=== PATIENT | male | born 1995 | race Hispanic/Latino ===

== ENCOUNTER 2017-07-25 17:35 | Emergency (ER) | payer SELFPAY ==
--- NOTE | 2017-07-25 19:33 | ER ---
Nurse's Notes [facility] Name: Vidal Sexton Age: 21 yrs Sex: Male : 1995 Arrival Date: 07/25/2017 Time: 17:39 Bed 8 Private MD: Diagnosis: Noninfective gastroenteritis and colitis, unspecified Presentation: 07/25 18:15 Presenting complaint: Patient states: N/V/D and upper abdominal pain x 4 days. Denies hb fever. Tolerating liquids. Transition of care: patient was not received from another setting of care. Onset of symptoms was July 22, 2017. Initial Sepsis Screen: Does the patient meet any 2 criteria? No. Patient's initial sepsis screen is negative. Does the patient have a suspected source of infection? No. Patient's initial sepsis screen is negative. Care prior to arrival: None. 18:15 Acuity: TRISHA 3 hb 18:15 Method Of Arrival: Ambulatory hb 19:53 Note Pt came back into ED and states he did not leave and that he was outside smoking aa1 when he was called previously. Elopement reversed at this time. Historical: - Allergies: 18:15 No Known Allergies; hb - Home Meds: 18:15 None [Active]; hb - PMHx: 18:15 None; hb - PSHx: 18:15 None; hb - Immunization history:: Adult Immunizations up to date. - Social history:: Smoking status: Patient uses tobacco products, smokes one-half pack cigarettes per day. Screenin:10 Abuse screen: Denies threats or abuse. Denies injuries from another. Nutritional ak1 screening: No deficits noted. Fall Risk None identified. 20:12 Tuberculosis screening: No symptoms or risk factors identified. ak1 Assessment: 20:10 General: Appears in no apparent distress. Behavior is calm, cooperative, pt asked for a ak1 "sack lunch" . Pain: Complains of pain in headache and abd pain. Neuro: Level of Consciousness is awake, alert, obeys commands, Oriented to person, place, time, situation, Hose Inspector are equal bilaterally Moves all extremities. Gait is steady, Speech is normal, Facial symmetry appears normal. Cardiovascular: No deficits noted. Respiratory: No deficits noted. GI: Abdomen is round Bowel sounds present X 4 quads. GI: Reports lower abdominal pain, upper abdominal pain, nausea. : No signs and/or symptoms were reported regarding the genitourinary system. EENT: No signs and/or symptoms were reported regarding the EENT system. Derm: No signs and/or symptoms reported regarding the dermatologic system. Musculoskeletal: No signs and/or symptoms reported regarding the musculoskeletal system. 20:13 GI: Abd is soft and non tender X 4 quads. ak1 20:27 Reassessment: pt stated N/V/D started Tuesday. ak1 Vital Signs: 18:14 BP 158 / 102; Pulse 84; Resp 16; Temp 98.1(O); Pulse Ox 98% ; Weight 108.86 kg; Height hb 5 ft. 10 in. (177.80 cm); Pain 6/10; 20:21 BP 125 / 64; Pulse 72; Resp 16; Temp 98.1; Pulse Ox 100% on R/A; ak1 18:14 Body Mass Index 34.44 (108.86 kg, 177.80 cm) hb ED Course: 17:39 Patient arrived in ED. as 18:14 Arm band placed on left wrist. hb 18:16 Triage completed. hb 19:18 Rocio De Luna FNP-C is PHCP. kb 19:18 Mic Lomeli MD is Attending Physician. kb 19:22 Patient's name was called from ER lobby. No response. aa1 19:33 Patient's name was called from ER lobby. No response. Unable to locate patient. Will aa1 disposition as left without being seen by a provider. 20:03 Rocio De Luna FNP-C is PHCP. kb 20:04 Mic Lomeli MD is Attending Physician. kb 20:10 Lauren Cano, EDWINA is Primary Nurse. ak1 20:13 Patient has correct armband on for positive identification. Placed in gown. Bed in low ak1 position. Call light in reach. Side rails up X 1. Pulse ox on. NIBP on. 20:25 Initial lab(s) drawn, by me, sent to lab. Inserted saline lock: 20 gauge in left cc forearm, using aseptic technique. Blood collected. 21:21 No provider procedures requiring assistance completed. IV discontinued, intact, ak1 bleeding controlled, No redness/swelling at site. Pressure dressing applied. Administered Medications: 20:21 Drug: NS 0.9% 1000 ml Route: IV; Rate: 1000 ml; Site: left forearm; ak1 21:21 Follow up: IV Status: Completed infusion ak1 20:21 Drug: Zofran 4 mg Route: IVP; Site: left forearm; ak1 : Follow up: Response: No adverse reaction ak1 :22 Follow up: Response: No adverse reaction ak1 Outcome: 19:33 Patient left the ED. aa1 21:11 Discharge ordered by . natasha 21:21 Discharged to home ambulatory. ak1 21:21 Condition: good 21:21 Discharge instructions given to patient, Instructed on discharge instructions, follow up and referral plans. no drinking with medication, no driving heavy equipment, medication usage, Demonstrated understanding of instructions, follow-up care, medications, Prescriptions given X 2. 21:24 Patient left the ED. ak1 Signatures: Rocio De Luna, DEPUTY K 9-C DEPUTY K 9-CkSo Stallworth, RN RN aa1 Julianne Wilkerson Chelsea cc Krenek, Amber, RN RN ak1 Molly Torres RN RN
[2017-07-25] MEDS ORDERED: NA CHLORIDE 0.9% 1,000 ML ONE (20:15)
[2017-07-25] MEDS ORDERED: ONDANSETRON 4 MG/2 ML VIAL ONE (20:15)
[2017-07-25 20:37] LABS: Absolute Lymphocytes (CBC) 2.9 K/uL (0.7-4.9); Absolute Monocytes 0.8 K/uL (0.1-1.3); Absolute Neutrophil 4.6 K/uL (1.8-8.0); Basophils % 0.6 % (0-1.3); Eosinophils % 2.8 % (0-4.4); Hematocrit 45.7 % (39.6-49.0); Lymphocytes % 33.4 % (15.3-44.8); MCH 28.7 pg (27.0-35.0); MCV 86.5 fL (80-100); MPV 9.5 fL (7.6-11.3); Monocytes % 9.6 % (3.3-12.3); RBC Red Blood Cell Count 5.28 M/uL (4.33-5.43)
[2017-07-25 20:48] LABS: Bicarbonate 26 mEq/L (21-31); Glucose Level 89 mg/dL (65-120); Lipase 19 U/L (22-51); Potassium 3.7 mEq/L (3.6-5.0); Sodium Level 138 mEq/L (135-145)
[2017-07-25 20:54] LABS: ALT/SGPT 19 IU/L (10-60); AST/SGOT 17 IU/L (10-42); Albumin 4.1 g/dL (3.2-5.5); Alkaline Phosphatase 64 IU/L (42-121); Amylase Level 38 U/L (28-100); BUN Blood Urea Nitrogen 11 mg/dL (6-20); Bilirubin Direct < 0.1 mg/dL (0-0.2); Bilirubin Total 0.7 mg/dL (0.3-1.2); Protein, Total 7.6 g/dL (6.0-8.3)
--- NOTE | 2017-07-25 21:11 | EDPHYS ---
Physician Documentation [facility] Name: Vidal Sexton Age: 21 yrs Sex: Male : 1995 Arrival Date: 07/25/2017 Time: 17:39 Bed 8 Private MD: ED Physician Mic Lomeli HPI: 07/25 20:12 This 21 yrs old Male presents to ER via Ambulatory with complaints of kb Abdominal Pain, Headache. 20:12 The patient presents to the emergency department with nausea, vomiting, diarrhea. kb Onset: The symptoms/episode began/occurred 4 day(s) ago. Possible causes: unknown. The symptoms are aggravated by nothing. The symptoms are alleviated by nothing. Associated signs and symptoms: Pertinent positives: abdominal pain, diarrhea, nausea, vomiting. Severity of symptoms: At their worst the symptoms were mild moderate in the emergency department the symptoms are unchanged. The patient has not experienced similar symptoms in the past. The patient has not recently seen a physician. Historical: - Allergies: 18:15 No Known Allergies; hb - Home Meds: 18:15 None [Active]; hb - PMHx: 18:15 None; hb - PSHx: 18:15 None; hb - Immunization history:: Adult Immunizations up to date. - Social history:: Smoking status: Patient uses tobacco products, smokes one-half pack cigarettes per day. ROS: 20:11 Constitutional: Negative for fever, chills, and weight loss, Cardiovascular: Negative kb for chest pain, palpitations, and edema, Respiratory: Negative for shortness of breath, cough, wheezing, and pleuritic chest pain, Back: Negative for injury and pain, : Negative for injury, bleeding, discharge, and swelling, MS/Extremity: Negative for injury and deformity, Skin: Negative for injury, rash, and discoloration, Neuro: Negative for headache, weakness, numbness, tingling, and seizure. 20:11 Abdomen/GI: Positive for abdominal pain, nausea, vomiting, and diarrhea, Negative for constipation, abdominal cramps, abdominal distension, anorexia. Exam: 20:11 Constitutional: This is a well developed, well nourished patient who is awake, alert, kb and in no acute distress. Head/Face: Normocephalic, atraumatic. ENT: Nares patent. No nasal discharge, no septal abnormalities noted. Tympanic membranes are normal and external auditory canals are clear. Oropharynx with no redness, swelling, or masses, exudates, or evidence of obstruction, uvula midline. Mucous membranes moist. Neck: Trachea midline, no thyromegaly or masses palpated, and no cervical lymphadenopathy. Supple, full range of motion without nuchal rigidity, or vertebral point tenderness. No Meningismus. Chest/axilla: Normal chest wall appearance and motion. Nontender with no deformity. No lesions are appreciated. Cardiovascular: Regular rate and rhythm with a normal S1 and S2. No gallops, murmurs, or rubs. Normal PMI, no JVD. No pulse deficits. Respiratory: Lungs have equal breath sounds bilaterally, clear to auscultation and percussion. No rales, rhonchi or wheezes noted. No increased work of breathing, no retractions or nasal flaring. Abdomen/GI: Soft, non-tender, with normal bowel sounds. No distension or tympany. No guarding or rebound. No evidence of tenderness throughout. Skin: Warm, dry with normal turgor. Normal color with no rashes, no lesions, and no evidence of cellulitis. MS/ Extremity: Pulses equal, no cyanosis. Neurovascular intact. Full, normal range of motion. Neuro: Awake and alert, GCS 15, oriented to person, place, time, and situation. Cranial nerves II-XII grossly intact. Motor strength 5/5 in all extremities. Sensory grossly intact. Cerebellar exam normal. Normal gait. Vital Signs: 18:14 BP 158 / 102; Pulse 84; Resp 16; Temp 98.1(O); Pulse Ox 98% ; Weight 108.86 kg; Height hb 5 ft. 10 in. (177.80 cm); Pain 6/10; 20:21 BP 125 / 64; Pulse 72; Resp 16; Temp 98.1; Pulse Ox 100% on R/A; ak1 18:14 Body Mass Index 34.44 (108.86 kg, 177.80 cm) hb MDM: 19:20 Patient medically screened. kb 20:06 Patient medically screened. kb 20:11 Data reviewed: vital signs, nurses notes. Data interpreted: Pulse oximetry: on room air kb is 98 %. Interpretation: normal. 21:10 Counseling: I had a detailed discussion with the patient and/or guardian regarding: the kb historical points, exam findings, and any diagnostic results supporting the discharge/admit diagnosis, lab results, the need for outpatient follow up, a family practitioner, to return to the emergency department if symptoms worsen or persist or if there are any questions or concerns that arise at home. 07/25 20:06 Order name: Amylase, Serum; Complete Time: 20:58 kb 07/25 20:06 Order name: Basic Metabolic Panel; Complete Time: 20:58 kb 07/25 20:06 Order name: CBC with Diff; Complete Time: 20:50 kb 07/25 20:06 Order name: Hepatic Function; Complete Time: 20:58 kb 07/25 20:06 Order name: Lipase; Complete Time: 20:58 kb 07/25 20:06 Order name: IV Saline Lock; Complete Time: 20:21 kb 07/25 20:06 Order name: Labs collected and sent; Complete Time: 20:27 kb Administered Medications: 20:21 Drug: NS 0.9% 1000 ml Route: IV; Rate: 1000 ml; Site: left forearm; ak1 21:21 Follow up: IV Status: Completed infusion ak1 20:21 Drug: Zofran 4 mg Route: IVP; Site: left forearm; ak1 20:27 Follow up: Response: No adverse reaction ak1 21:22 Follow up: Response: No adverse reaction ak1 Disposition: 23:48 Co-signature as Attending Physician, Mic Lomeli MD. pkl Disposition: 07/25/17 21:11 Discharged to Home. Impression: Noninfective gastroenteritis and colitis, unspecified. - Condition is Stable. - Discharge Instructions: Food Choices to Help Relieve Diarrhea, Adult, Viral Gastroenteritis. - Prescriptions for Bentyl 20 mg Oral Tablet - take 1 tablet by ORAL route every 6 hours As needed; 20 tablet. Zofran 4 mg Oral Tablet - take 1 tablet by ORAL route every 6 hours As needed; 20 tablet. - Medication Reconciliation Form, Thank You Letter, Antibiotic Education, Prescription Opioid Use, Work release form form. - Follow up: Emergency Department; When: As needed; Reason: Worsening of condition. Follow up: Private Physician; When: 2 - 3 days; Reason: Recheck today's complaints, Continuance of care, Re-evaluation by your physician. Signatures: Dispatcher [employer] Rocio Gore, SUPERVISOR COOLER SERVICE-C SUPERVISOR COOLER SERVICE-So Murphy, RN RN aa1 Mic Lomeli MD MD pkl Krenek, Amber RN RN ak1 Molly Torres RN RN hb Corrections: (The following items were deleted from the chart) 21:22 20:06 Urine Dipstick-Ancillary ordered. natasha ak1
== END 2017-07-25 21:24 | disposition home or self-care (01) ==
LOC: ER 17:35
DX: K52.9 Noninfective gastroenteritis and colitis, unspecified (principal); F17.210 Nicotine dependence, cigarettes, uncomplicated
CPT/HCPCS: 36415; 80048; 80076; 82150; 83690; 85025; 96361; 96374; 99284; J2405; J7030

== ENCOUNTER 2017-09-16 21:48 | Emergency (ER) | payer SELFPAY ==
--- NOTE | 2017-09-16 22:55 | EDPHYS ---
Physician Documentation [facility] Name: Vidal Sexton Age: 22 yrs Sex: Male : 1995 Arrival Date: 09/16/2017 Time: 21:48 Bed 16 Private MD: Kevin Rivero T ED Physician Robert Jesus HPI: 09/16 22:48 This 22 yrs old Male presents to ER via Ambulatory with complaints of cp Abdominal Pain. 22:51 The patient presents to the emergency department with vomiting, 2 episodes yesterday, cp none today, diarrhea, that is intermittent. Onset: The symptoms/episode began/occurred yesterday. Possible causes: unknown. Patient reports he missed work today and needs note to return tomorrow. Patient reports he was able to eat fried rice that bought this evening without vomiting. Historical: - Allergies: 21:57 No Known Allergies; tl2 - Home Meds: 21:57 None [Active]; tl2 - PMHx: 21:57 None; tl2 - PSHx: 21:57 None; tl2 - Immunization history:: Adult Immunizations up to date. - Social history:: Smoking status: Patient uses tobacco products, smokes one-half pack cigarettes per day. - Ebola Screening: : No symptoms or risks identified at this time. ROS: 22:50 Constitutional: Negative for body aches, chills, fever, poor PO intake. cp 22:50 Eyes: Negative for injury, pain, redness, and discharge. cp 22:50 ENT: Negative for drainage from ear(s), ear pain, sore throat, difficulty swallowing, difficulty handling secretions. 22:50 Cardiovascular: Negative for chest pain. 22:50 Respiratory: Negative for cough, shortness of breath, wheezing. 22:50 Abdomen/GI: Negative for abdominal pain, diarrhea, constipation, anorexia, active vomiting. 22:50 Back: Negative for radiated pain. 22:50 : Negative for urinary symptoms, penile pain, testicular pain 22:50 Skin: Negative for cellulitis, rash. 22:50 Neuro: Negative for altered mental status, headache, weakness. 22:50 All other systems are negative. Exam: 22:52 Constitutional: The patient appears in no acute distress, alert, awake, non-toxic, well cp developed, well nourished. 22:52 Head/Face: Normocephalic, atraumatic. cp 22:52 Eyes: Periorbital structures: appear normal, Conjunctiva: normal, no exudate, no injection, Sclera: no appreciated abnormality, Lids and lashes: appear normal, bilaterally. 22:52 ENT: External ear(s): are unremarkable, Ear canal(s): are normal, clear, Nose: is normal, Mouth: Lips: moist, Oral mucosa: pink and intact, moist, Posterior pharynx: is normal, airway is patent, no erythema, no exudate. 22:52 Neck: ROM/movement: is normal, is supple, without pain, no range of motions limitations, no nuchal rigidity. 22:52 Chest/axilla: Inspection: normal, Palpation: is normal, no crepitus, no tenderness. 22:52 Cardiovascular: Rate: normal, Rhythm: regular. 22:52 Respiratory: the patient does not display signs of respiratory distress, Respirations: normal, no use of accessory muscles, no retractions, no splinting, no tachypnea, labored breathing, is not present, Breath sounds: are clear throughout, no decreased breath sounds, no stridor, no wheezing. 22:52 Abdomen/GI: Inspection: abdomen appears normal, Bowel sounds: active, all quadrants, Palpation: abdomen is soft and non-tender, in all quadrants, rebound tenderness, is not appreciated, voluntary guarding, is not appreciated, involuntary guarding, is not appreciated. 22:52 Back: pain, is absent, ROM is normal. 22:52 Skin: cellulitis, is not appreciated, no rash present. Vital Signs: 21:57 BP 135 / 77; Pulse 95; Resp 18; Temp 98.4(O); Pulse Ox 98% on R/A; Weight 111.13 kg; tl2 Height 5 ft. 11 in. (180.34 cm); Pain 2/10; 21:57 Body Mass Index 34.17 (111.13 kg, 180.34 cm) tl2 MDM: 21:51 Patient medically screened. cp 22:50 Differential diagnosis: gastritis, cholecystitis, pancreatitis, appendicitis, cp diverticulitis, viral gastroenteritis, gastroenteritis. 22:54 Data reviewed: vital signs, nurses notes, and as a result, I will discharge patient. cp 22:54 Counseling: I had a detailed discussion with the patient and/or guardian regarding: the cp historical points, exam findings, and any diagnostic results supporting the discharge/admit diagnosis, to return to the emergency department if symptoms worsen or persist or if there are any questions or concerns that arise at home. ED course: VSS. Note given to return to work. Will discharge to home for continued monitoring. Administered Medications: No medications were administered Disposition: 09/17 00:01 Co-signature as Attending Physician, Robert Jesus MD. Disposition: 09/16/17 22:54 Discharged to Home. Impression: Encounter for screening, unspecified. - Condition is Stable. - Work release form, Medication Reconciliation Form, Thank You Letter, Antibiotic Education, Prescription Opioid Use form. - Follow up: Kevin Rivero MD; When: 1 - 2 days; Reason: if symptoms continue. - Problem is new. - Symptoms have improved. Signatures: Vanessa Dunn RN RN mw Delmar Ahn PA PA cp Knox, Taylor, RN RN tl2 Robert Jesus MD MD Corrections: (The following items were deleted from the chart) 09/16 23:29 22:54 09/16/2017 22:54 Discharged to Home. Impression: Encounter for screening, mw unspecified. Condition is Stable. Forms are Medication Reconciliation Form, Thank You Letter, Antibiotic Education, Prescription Opioid Use. Follow up: Kevin Rivero; When: 1 - 2 days; Reason: if symptoms continue. Problem is new. Symptoms have improved. cp
--- NOTE | 2017-09-16 22:55 | ER ---
Nurse's Notes [facility] Name: Vidal Sexton Age: 22 yrs Sex: Male : 1995 Arrival Date: 09/16/2017 Time: 21:48 Bed 16 Private MD: Kevin Rivero T Diagnosis: Encounter for screening, unspecified Presentation: 09/16 21:55 Presenting complaint: Patient states: I called into work because I was having stomach tl2 pain and I vomited once and diarrhea. I wasn't going to come in but my boss said I needed a work release note. Transition of care: patient was not received from another setting of care. Onset of symptoms was September 15, 2017. Risk Assessment: Do you want to hurt yourself or someone else? Patient reports no desire to harm self or others. Initial Sepsis Screen: Does the patient meet any 2 criteria? No. Patient's initial sepsis screen is negative. Does the patient have a suspected source of infection? No. Patient's initial sepsis screen is negative. Care prior to arrival: None. 21:55 Method Of Arrival: Ambulatory tl2 21:55 Acuity: TRISHA 3 tl2 Triage Assessment: 21:57 General: Appears in no apparent distress. comfortable, Behavior is calm, cooperative, tl2 appropriate for age. Pain: Complains of pain in abdomen. Cardiovascular: Denies chest pain. Respiratory: Airway is patent Respiratory effort is even, unlabored, Respiratory pattern is regular, symmetrical. GI: Abdomen is non-distended, Bowel sounds present X 4 quads. Reports diarrhea, nausea, vomiting. : No signs and/or symptoms were reported regarding the genitourinary system. Derm: Skin is pink, warm \T\ dry. Historical: - Allergies: 21:57 No Known Allergies; tl2 - Home Meds: 21:57 None [Active]; tl2 - PMHx: 21:57 None; tl2 - PSHx: 21:57 None; tl2 - Immunization history:: Adult Immunizations up to date. - Social history:: Smoking status: Patient uses tobacco products, smokes one-half pack cigarettes per day. - Ebola Screening: : No symptoms or risks identified at this time. Screenin:58 Abuse screen: Denies threats or abuse. Nutritional screening: No deficits noted. tl2 Tuberculosis screening: No symptoms or risk factors identified. Fall Risk None identified. Assessment: 21:59 General: see triage assessment. tl2 22:47 Reassessment: Patient appears in no apparent distress at this time. Patient and/or tl2 family updated on plan of care and expected duration. Pain level reassessed. Patient is alert, oriented x 3, equal unlabored respirations, skin warm/dry/pink. Awaiting further orders. Vital Signs: 21:57 BP 135 / 77; Pulse 95; Resp 18; Temp 98.4(O); Pulse Ox 98% on R/A; Weight 111.13 kg; tl2 Height 5 ft. 11 in. (180.34 cm); Pain 2/10; 21:57 Body Mass Index 34.17 (111.13 kg, 180.34 cm) tl2 ED Course: 21:48 Patient arrived in ED. ds1 21:48 None, None is Private Physician. ds1 21:49 Kevin Rivero MD is Private Physician. ds1 21:51 [facility] cp 21:51 Robert Jesus MD is Attending Physician. cp 21:55 Janay Bustillo, EDWINA is Primary Nurse. tl2 21:57 Triage completed. tl2 21:57 Arm band placed on right wrist. tl2 21:59 Patient has correct armband on for positive identification. Bed in low position. Call tl2 light in reach. Side rails up X 1. 22:52 Kevin Rivero MD is Referral Physician. cp Administered Medications: No medications were administered Outcome: 22:54 Discharge ordered by . cp 23:29 Patient left the ED. Signatures: Vanessa Dunn RN RN Sandy Lynch ds1 Delmar Ahn PA PA cp Janay Bustillo RN RN tl2
== END 2017-09-16 23:29 | disposition home or self-care (01) ==
LOC: ER 21:48
DX: Z13.9 Encounter for screening, unspecified (principal); F17.210 Nicotine dependence, cigarettes, uncomplicated
CPT/HCPCS: 99281

== ENCOUNTER 2017-10-24 22:11 | Emergency (ER) | payer SELFPAY ==
[2017-10-24 23:04] LABS: Urine Blood NEGATIVE (NEG); Urine Glucose NEGATIVE (NEG); Urine Protein NEGATIVE (NEG); Urine Specific Gravity 1.015 (1.005-1.030)
--- NOTE | 2017-10-24 23:06 | EDPHYS ---
Physician Documentation [facility] Name: Vidal Sexton Age: 22 yrs Sex: Male : 1995 Arrival Date: 10/24/2017 Time: 22:11 Bed 28 Private MD: Kevin Rivero T ED Physician James Bourne HPI: 10/24 23:00 This 22 yrs old Male presents to ER via Ambulatory with complaints of jr8 Dizziness. 23:00 The patient presents with dizziness. Onset: The symptoms/episode began/occurred jr8 acutely, yesterday. Context: occurred at home. Associated signs and symptoms: The patient has no apparent associated signs or symptoms. Severity of symptoms: At their worst the symptoms were mild in the emergency department the symptoms have resolved. Patient's baseline: Neuro: alert and fully oriented, Motor: no deficits, Ambulation: walks without assistance, Speech: normal. The patient has not experienced similar symptoms in the past. The patient has not recently seen a physician. Patient stated that he has been working a lot lately. Stated that he felt fatigued. Took a day off of work. Had dizziness today but hydrated and feels much better. Called boss and wanted to make sure he got a work note. Historical: - Allergies: 22:34 No Known Allergies; bb - Home Meds: 22:34 None [Active]; bb - PMHx: 22:34 None; bb - PSHx: 22:34 None; bb - Immunization history:: Adult Immunizations up to date. - Social history:: Smoking status: Patient/guardian denies using tobacco, Patient uses alcohol, weekly. Patient/guardian denies using street drugs. - Ebola Screening: : No symptoms or risks identified at this time. ROS: 23:00 Eyes: Negative for injury, pain, redness, and discharge, ENT: Negative for injury, jr8 pain, and discharge, Neck: Negative for injury, pain, and swelling, Cardiovascular: Negative for chest pain, palpitations, and edema, Respiratory: Negative for shortness of breath, cough, wheezing, and pleuritic chest pain, Abdomen/GI: Negative for abdominal pain, nausea, vomiting, diarrhea, and constipation, Back: Negative for injury and pain, MS/Extremity: Negative for injury and deformity, Skin: Negative for injury, rash, and discoloration. 23:00 Constitutional: Positive for fatigue. 23:00 Neuro: Positive for dizziness, Negative for altered mental status, gait disturbance, headache, hearing loss, loss of consciousness, numbness, seizure activity, speech changes, syncope, near syncope, tingling, tinnitus, tremor, visual changes, weakness. Exam: 23:00 Eyes: Pupils equal round and reactive to light, extra-ocular motions intact. Lids and jr8 lashes normal. Conjunctiva and sclera are non-icteric and not injected. Cornea within normal limits. Periorbital areas with no swelling, redness, or edema. ENT: Nares patent. No nasal discharge, no septal abnormalities noted. Tympanic membranes are normal and external auditory canals are clear. Oropharynx with no redness, swelling, or masses, exudates, or evidence of obstruction, uvula midline. Mucous membranes moist. Neck: Trachea midline, no thyromegaly or masses palpated, and no cervical lymphadenopathy. Supple, full range of motion without nuchal rigidity, or vertebral point tenderness. No Meningismus. Cardiovascular: Regular rate and rhythm with a normal S1 and S2. No gallops, murmurs, or rubs. Normal PMI, no JVD. No pulse deficits. Respiratory: Lungs have equal breath sounds bilaterally, clear to auscultation and percussion. No rales, rhonchi or wheezes noted. No increased work of breathing, no retractions or nasal flaring. Abdomen/GI: Soft, non-tender, with normal bowel sounds. No distension or tympany. No guarding or rebound. No evidence of tenderness throughout. Back: No spinal tenderness. No costovertebral tenderness. Full range of motion. Skin: Warm, dry with normal turgor. Normal color with no rashes, no lesions, and no evidence of cellulitis. MS/ Extremity: Pulses equal, no cyanosis. Neurovascular intact. Full, normal range of motion. Neuro: Awake and alert, GCS 15, oriented to person, place, time, and situation. Cranial nerves II-XII grossly intact. Motor strength 5/5 in all extremities. Sensory grossly intact. Cerebellar exam normal. Normal gait. Vital Signs: 22:34 BP 132 / 67; Pulse 78; Resp 16 S; Temp 97.9(O); Pulse Ox 100% on R/A; Weight 117.93 kg bb (R); Height 5 ft. 11 in. (180.34 cm) (R); Pain 0/10; 22:34 Body Mass Index 36.26 (117.93 kg, 180.34 cm) alexander MDM: 22:32 Patient medically screened. jr8 23:00 Data reviewed: vital signs, nurses notes, and as a result, I will discharge patient. jr8 Data interpreted: Pulse oximetry: on room air is 100 %. Interpretation: normal. Counseling: I had a detailed discussion with the patient and/or guardian regarding: the historical points, exam findings, and any diagnostic results supporting the discharge/admit diagnosis, the need for outpatient follow up, a family practitioner, to return to the emergency department if symptoms worsen or persist or if there are any questions or concerns that arise at home. 10/24 22:46 Order name: Urine Dipstick--Ancillary (enter results); Complete Time: 23:06 rg2 Administered Medications: No medications were administered Disposition: 10/25 20:28 Co-signature as Attending Physician, James Bourne MD I agree with the assessment and wa plan of care. Disposition: 10/24/17 23:05 Discharged to Home. Impression: Dizziness . - Condition is Stable. - Discharge Instructions: Dehydration, Adult, Dizziness. - Work release form, Medication Reconciliation Form, Thank You Letter, Antibiotic Education, Prescription Opioid Use form. - Follow up: Kevin Rivero MD; When: As needed; Reason: Recheck today's complaints, Continuance of care, Re-evaluation by your physician. - Problem is new. - Symptoms are resolved. Signatures: Dispatcher [employer] EDShawanda Tubbs RN RN Hiram Nettles PA PA jr8 James Bourne MD MD wa Gardose, Michele, RN RN mg2 Corrections: (The following items were deleted from the chart) 10/24 23:22 23:05 10/24/2017 23:05 Discharged to Home. Impression: Dizziness . Condition is Stable. mg2 Forms are Medication Reconciliation Form, Thank You Letter, Antibiotic Education, Prescription Opioid Use. Follow up: Kevin Rivero; When: As needed; Reason: Recheck today's complaints, Continuance of care, Re-evaluation by your physician. Problem is new. Symptoms are resolved. jr8
--- NOTE | 2017-10-24 23:06 | ER ---
Nurse's Notes [facility] Name: Vidal Sexton Age: 22 yrs Sex: Male : 1995 Arrival Date: 10/24/2017 Time: 22:11 Bed 28 Private MD: Kevin Rivero T Diagnosis: Dizziness Presentation: 10/24 22:33 Presenting complaint: Patient states: he has been feeling sick since Tuesday with bb cough and congestion started feeling dizzy today states he needs a work excuse because he did not go to work today. Transition of care: patient was not received from another setting of care. Onset of symptoms was October 22, 2017. Risk Assessment: Do you want to hurt yourself or someone else? Patient reports no desire to harm self or others. Initial Sepsis Screen: Does the patient meet any 2 criteria? No. Patient's initial sepsis screen is negative. Does the patient have a suspected source of infection? No. Patient's initial sepsis screen is negative. Care prior to arrival: None. 22:33 Method Of Arrival: Ambulatory bb 22:33 Acuity: TRISHA 5 bb Historical: - Allergies: 22:34 No Known Allergies; bb - Home Meds: 22:34 None [Active]; bb - PMHx: 22:34 None; bb - PSHx: 22:34 None; bb - Immunization history:: Adult Immunizations up to date. - Social history:: Smoking status: Patient/guardian denies using tobacco, Patient uses alcohol, weekly. Patient/guardian denies using street drugs. - Ebola Screening: : No symptoms or risks identified at this time. Screenin:33 Abuse screen: Denies threats or abuse. Denies injuries from another. Nutritional mg2 screening: No deficits noted. Tuberculosis screening: No symptoms or risk factors identified. Fall Risk None identified. Assessment: 22:33 General: Appears in no apparent distress. comfortable, Behavior is calm, cooperative. mg2 Pain: Complains of pain in abdomen Pain does not radiate. Pain currently is 3 out of 10 on a pain scale. Quality of pain is described as aching, Pain began gradually. Neuro: Level of Consciousness is awake, alert, obeys commands, Oriented to person, place, time, situation. Cardiovascular: Capillary refill < 3 seconds Patient's skin is warm and dry. Respiratory: Airway is patent Respiratory effort is even, unlabored, Respiratory pattern is regular, symmetrical, Breath sounds are clear. GI: Reports nausea. : No signs and/or symptoms were reported regarding the genitourinary system. EENT: No signs and/or symptoms were reported regarding the EENT system. Derm: Skin is intact, Skin is pink, warm \T\ dry. normal. Musculoskeletal: Circulation, motion, and sensation intact. Vital Signs: 22:34 BP 132 / 67; Pulse 78; Resp 16 S; Temp 97.9(O); Pulse Ox 100% on R/A; Weight 117.93 kg bb (R); Height 5 ft. 11 in. (180.34 cm) (R); Pain 0/10; 22:34 Body Mass Index 36.26 (117.93 kg, 180.34 cm) bb ED Course: 22:11 Patient arrived in ED. ds1 22:12 Kevin Rivero MD is Private Physician. ds1 22:29 Luis Miguel Silveira RN is Primary Nurse. mg2 22:32 [facility] jr8 22:32 James Bourne MD is Attending Physician. jr8 22:34 Triage completed. bb 22:34 Arm band placed on Patient placed in an exam room, on a stretcher, on pulse oximetry. bb 22:59 Patient has correct armband on for positive identification. Side rails up X 1. Door mg2 closed. Warm blanket given. 23:05 Kevin Rivero MD is Referral Physician. jr8 23:22 No provider procedures requiring assistance completed. Patient did not have IV access mg2 during this emergency room visit. Administered Medications: No medications were administered Outcome: 23:05 Discharge ordered by . jr8 23:22 Discharged to home ambulatory. mg2 23:22 Condition: stable 23:22 Discharge instructions given to patient, Instructed on discharge instructions, follow up and referral plans. Demonstrated understanding of instructions, follow-up care. 23:22 Patient left the ED. mg2 Signatures: Sandy Lynch ds1 Shawanda Pugh RN RN bb Hiram Doss PA PA jr8 Luis Miguel Silveira RN RN mg2
== END 2017-10-24 23:22 | disposition home or self-care (01) ==
LOC: ER 22:11
DX: R42 Dizziness and giddiness (principal)
CPT/HCPCS: 81003; 99283

== ENCOUNTER 2017-11-07 21:45 | Emergency (ER) | payer SELFPAY ==
--- NOTE | 2017-11-07 22:30 | EDPHYS ---
Physician Documentation [facility] Name: Vidal Sexton Age: 22 yrs Sex: Male : 1995 Arrival Date: 11/07/2017 Time: 21:48 Bed 28 Private MD: ED Physician Robert Jesus HPI: 11/07 22:07 This 22 yrs old Male presents to ER via Ambulatory with complaints of gs Headache, Work Note. 22:07 The patient complains of pain to the forehead. The patient describes the headache as gs throbbing. Onset: The symptoms/episode began/occurred gradually, yesterday. Associated signs and symptoms: Pertinent negatives: altered mental status, fever, neck stiffness, Photophobia rash, vision loss, vomiting. Severity of symptoms: At its worst the pain was moderate, in the emergency department the pain has resolved. Headache History: Denies prior headaches. The symptoms are alleviated by over the counter pain medication, OTC NSAIDS, the symptoms are aggravated by nothing. The patient has experienced similar episodes in the past, a few times. Historical: - Allergies: 21:55 No Known Allergies; aj - Home Meds: 21:55 None [Active]; aj - PMHx: 21:55 None; aj - PSHx: 21:55 None; aj - Immunization history:: Adult Immunizations up to date. - Social history:: Smoking status: Patient uses tobacco products, smokes one-half pack cigarettes per day. - Ebola Screening: : Patient negative for fever greater than or equal to 101.5 degrees Fahrenheit, and additional compatible Ebola Virus Disease symptoms Patient denies exposure to infectious person Patient denies travel to an Ebola-affected area in the 21 days before illness onset No symptoms or risks identified at this time. ROS: 22:07 All other systems are negative. gs Exam: 22:07 Head/Face: Normocephalic, atraumatic. Eyes: Pupils equal round and reactive to light, gs extra-ocular motions intact. Lids and lashes normal. Conjunctiva and sclera are non-icteric and not injected. Cornea within normal limits. Periorbital areas with no swelling, redness, or edema. ENT: Nares patent. No nasal discharge, no septal abnormalities noted. Tympanic membranes are normal and external auditory canals are clear. Oropharynx with no redness, swelling, or masses, exudates, or evidence of obstruction, uvula midline. Mucous membranes moist. Neck: Trachea midline, no thyromegaly or masses palpated, and no cervical lymphadenopathy. Supple, full range of motion without nuchal rigidity, or vertebral point tenderness. No Meningismus. Chest/axilla: Normal chest wall appearance and motion. Nontender with no deformity. No lesions are appreciated. Respiratory: Lungs have equal breath sounds bilaterally, clear to auscultation and percussion. No rales, rhonchi or wheezes noted. No increased work of breathing, no retractions or nasal flaring. Abdomen/GI: Soft, non-tender, with normal bowel sounds. No distension or tympany. No guarding or rebound. No evidence of tenderness throughout. Back: No spinal tenderness. No costovertebral tenderness. Full range of motion. Skin: Warm, dry with normal turgor. Normal color with no rashes, no lesions, and no evidence of cellulitis. MS/ Extremity: Pulses equal, no cyanosis. Neurovascular intact. Full, normal range of motion. 22:07 Constitutional: The patient appears alert, awake. 22:07 Cardiovascular: Rate: tachycardic, Rhythm: regular, Pulses: no pulse deficits are appreciated. 22:07 Neuro: Orientation: is normal, to person, place, time \T\ situation. Mentation: is normal, Cranial nerves: CN II- XII are normal as tested, Cerebellar function: normal finger to nose testing, Motor: is normal, strength is normal, Sensation: no obvious gross deficits, no acute changes, Gait: is steady. Vital Signs: 21:55 BP 137 / 81; Pulse 125; Resp 15; Temp 97.7; Pulse Ox 97% on R/A; Weight 108.86 kg; aj Height 5 ft. 11 in. (180.34 cm); 22:20 BP 134 / 79; Pulse 93; Resp 17; Pulse Ox 99% on R/A; mg2 21:55 Body Mass Index 33.47 (108.86 kg, 180.34 cm) aj MDM: 22:06 Patient medically screened. 22:07 Differential diagnosis: migraine, tension headache, vasomotor headache. Data reviewed: vital signs, nurses notes. Response to treatment: the patient's symptoms have resolved after treatment. Administered Medications: No medications were administered Disposition: 11/07/17 22:29 Discharged to Home. Impression: Headache, Heat exhaustion, unspecified. - Condition is Stable. - Discharge Instructions: General Headache Without Cause, Heat Exhaustion Information. - Work release form, Medication Reconciliation Form, Thank You Letter, Antibiotic Education, Prescription Opioid Use form. - Follow up: Private Physician; When: 2 - 3 days; Reason: Re-evaluation by your physician. Signatures: Chichi Anderson RN RN aj Robert Jesus MD MD gs Luis Miguel Silveira RN RN mg2 Corrections: (The following items were deleted from the chart) 22:35 22:29 11/07/2017 22:29 Discharged to Home. Impression: Headache; Heat exhaustion, mg2 unspecified. Condition is Stable. Forms are Medication Reconciliation Form, Thank You Letter, Antibiotic Education, Prescription Opioid Use. Follow up: Private Physician; When: 2 - 3 days; Reason: Re-evaluation by your physician. gs
--- NOTE | 2017-11-07 22:30 | ER ---
Nurse's Notes [facility] Name: Vidal Sexton Age: 22 yrs Sex: Male : 1995 Arrival Date: 11/07/2017 Time: 21:48 Bed 28 Private MD: Diagnosis: Headache;Heat exhaustion, unspecified Presentation: 11/07 21:54 Presenting complaint: Patient states: "I had a headache today so I called in to work aj and I need a work note now." Patient presents drinking Iced Tea and eating Chips. Transition of care: patient was not received from another setting of care. Onset of symptoms was November 07, 2017. Risk Assessment: Do you want to hurt yourself or someone else? Patient reports no desire to harm self or others. Initial Sepsis Screen: Does the patient meet any 2 criteria? No. Patient's initial sepsis screen is negative. Does the patient have a suspected source of infection? No. Patient's initial sepsis screen is negative. Care prior to arrival: None. 21:54 Method Of Arrival: Ambulatory aj 21:54 Acuity: TRISHA 4 aj Triage Assessment: 21:55 Headache History: The patient has had previous headaches. General: Appears in no aj apparent distress. comfortable, Behavior is calm, cooperative, appropriate for age. Pain: Complains of pain in face and scalp. Neuro: Level of Consciousness is awake, alert, obeys commands, Oriented to person, place, time, situation, Appropriate for age Reports headache. Respiratory: Airway is patent Respiratory effort is even, unlabored, Respiratory pattern is regular, symmetrical. Derm: Skin is intact, is healthy with good turgor, Skin is pink, warm \\T\\ dry. normal. 22:21 Pain:. mg2 22:35 Pain: Also complains of no other associated symptoms. mg2 Historical: - Allergies: 21:55 No Known Allergies; aj - Home Meds: 21:55 None [Active]; aj - PMHx: 21:55 None; aj - PSHx: 21:55 None; aj - Immunization history:: Adult Immunizations up to date. - Social history:: Smoking status: Patient uses tobacco products, smokes one-half pack cigarettes per day. - Ebola Screening: : Patient negative for fever greater than or equal to 101.5 degrees Fahrenheit, and additional compatible Ebola Virus Disease symptoms Patient denies exposure to infectious person Patient denies travel to an Ebola-affected area in the 21 days before illness onset No symptoms or risks identified at this time. Screenin:05 Abuse screen: Denies threats or abuse. Denies injuries from another. Nutritional mg2 screening: No deficits noted. Tuberculosis screening: No symptoms or risk factors identified. Fall Risk None identified. Assessment: 22:09 General: Appears in no apparent distress. comfortable, Behavior is calm, cooperative. mg2 Pain: Complains of pain in head Pain does not radiate. Pain currently is 5 out of 10 on a pain scale. Quality of pain is described as aching, Pain began gradually, Is intermittent, Alleviated by rest. Neuro: Level of Consciousness is awake, alert, obeys commands, Oriented to person, place, time, situation. Cardiovascular: Capillary refill < 3 seconds Patient's skin is warm and dry. Respiratory: Airway is patent. GI: No signs and/or symptoms were reported involving the gastrointestinal system. : No signs and/or symptoms were reported regarding the genitourinary system. EENT: No signs and/or symptoms were reported regarding the EENT system. Derm: Skin is intact, Skin is pink, warm \\T\\ dry. normal. Musculoskeletal: Circulation, motion, and sensation intact. Vital Signs: 21:55 BP 137 / 81; Pulse 125; Resp 15; Temp 97.7; Pulse Ox 97% on R/A; Weight 108.86 kg; aj Height 5 ft. 11 in. (180.34 cm); 22:20 BP 134 / 79; Pulse 93; Resp 17; Pulse Ox 99% on R/A; mg2 21:55 Body Mass Index 33.47 (108.86 kg, 180.34 cm) ED Course: 21:48 Patient arrived in ED. do 21:55 Triage completed. aj 21:55 Arm band placed on left wrist. Patient placed in an exam room. aj 22:04 Luis Miguel Silveira, EDWINA is Primary Nurse. mg2 22:06 Robert Jesus MD is Attending Physician. gs 22:11 Patient has correct armband on for positive identification. mg2 22:20 No provider procedures requiring assistance completed. Patient did not have IV access mg2 during this emergency room visit. Administered Medications: No medications were administered Outcome: 22:29 Discharge ordered by . 22:35 Discharged to home ambulatory. mg2 22:35 Condition: stable 22:35 Discharge instructions given to patient, Instructed on discharge instructions, follow up and referral plans. Demonstrated understanding of instructions, follow-up care. 22:35 Patient left the ED. mg2 Signatures: Chichi Anderson RN RN aj Ogletree, Danielle do Starr, Gregory, MD MD Luis Miguel Silveira RN RN mg2
== END 2017-11-07 22:35 | disposition home or self-care (01) ==
LOC: ER 21:45
DX: T67.5XXA Heat exhaustion, unspecified, initial encounter (principal); F17.210 Nicotine dependence, cigarettes, uncomplicated
CPT/HCPCS: 99281

== ENCOUNTER 2017-12-08 13:32 | Emergency (ER) | payer SELFPAY ==
[2017-12-08] MEDS ORDERED: LIDOCAINE 2% MPF 5 ML VIAL ONE (14:04)
[2017-12-08] MEDS ORDERED: TETANUS & DIPHTHERIA TOX,ADULT 0.5 ML VIAL ONE (14:05)
[2017-12-08] MEDS ORDERED: MORPHINE 4 MG/ML SYR ONE (14:05)
--- NOTE | 2017-12-08 14:26 | RAD REPORT ---
EXAM DESCRIPTION: RAD - Hand Right 3 View - 12/08/2017 2:14 pm CLINICAL HISTORY: ANIMAL BITE COMPARISON: No comparisons FINDINGS: Laceration is noted along the base of the first digit. Small amount of air is present in t he soft tissues. No evidence of fracture or foreign body.
--- NOTE | 2017-12-08 15:12 | ER ---
Nurse's Notes [facility] Name: Vidal Sexton Age: 22 yrs Sex: Male : 1995 Arrival Date: 12/08/2017 Time: 13:33 Bed 20 Private MD: Diagnosis: Bitten by dog;Superficial lacerations of right hand Presentation: 12/08 13:42 Presenting complaint: Patient states: " I was walking down the street and a dog cam up ph and bit me." Puncture wound to top of R hand lacerations to outer aspect of thumb and palm, pt states that he does not know who the dog belonged to. Transition of care: patient was not received from another setting of care. Onset of symptoms was December 08, 2017. Risk Assessment: Do you want to hurt yourself or someone else? Patient reports no desire to harm self or others. Initial Sepsis Screen: Does the patient meet any 2 criteria? No. Patient's initial sepsis screen is negative. Does the patient have a suspected source of infection? No. Patient's initial sepsis screen is negative. Care prior to arrival: None. 13:42 Method Of Arrival: Ambulatory 13:42 Acuity: TRISHA 4 ph Triage Assessment: 15:44 Bite description: bite sustained to right hand by a dog, animal information: aj1 vaccination(s) is unknown. General: Appears in no apparent distress. Historical: - Allergies: 13:45 No Known Allergies; ph - Home Meds: 13:45 None [Active]; ph - PMHx: 13:45 None; ph - PSHx: 13:45 None; ph - Immunization history:: Adult Immunizations not up to date. - Social history:: Smoking status: Patient uses tobacco products, smokes one-half pack cigarettes per day. - Ebola Screening: : No symptoms or risks identified at this time. - Family history:: not pertinent. - Hospitalizations: : No recent hospitalization is reported. Screenin:10 Abuse screen: Denies threats or abuse. Denies injuries from another. Nutritional aj1 screening: No deficits noted. Tuberculosis screening: No symptoms or risk factors identified. 15:44 Fall Risk None identified. aj1 Assessment: 14:10 General: Appears in no apparent distress. uncomfortable, Behavior is calm, cooperative, aj1 appropriate for age. Pain: Complains of pain in right hand Pain does not radiate. Pain currently is 10 out of 10 on a pain scale. Quality of pain is described as sharp. Neuro: Level of Consciousness is awake, alert, obeys commands. Cardiovascular: Patient's skin is warm and dry. Respiratory: Airway is patent Respiratory effort is even, unlabored, Respiratory pattern is regular, symmetrical. GI: No signs and/or symptoms were reported involving the gastrointestinal system. : No signs and/or symptoms were reported regarding the genitourinary system. EENT: No signs and/or symptoms were reported regarding the EENT system. Derm: Skin is healthy with good turgor, Skin is pink, warm \\T\\ dry. Injury Description: Laceration sustained to heel of right hand, palm of right hand and outer aspect of right palm is bleeding moderately, Puncture sustained to dorsum of right hand. 15:44 Reassessment: Patient appears in no apparent distress at this time. No changes from aj1 previously documented assessment. Patient and/or family updated on plan of care and expected duration. Pain level reassessed. Patient is alert, oriented x 3, equal unlabored respirations, skin warm/dry/pink. Vital Signs: 13:43 BP 161 / 71; Pulse 101; Resp 20; Temp 98.9; Pulse Ox 98% on R/A; Weight 108.86 kg; ph Height 5 ft. 11 in. (180.34 cm); Pain 10/10; 13:43 Body Mass Index 33.47 (108.86 kg, 180.34 cm) ph ED Course: 13:33 Patient arrived in ED. sb2 13:43 Triage completed. ph 13:44 Andrea Ibrahim MD is Attending Physician. rn 13:45 Arm band placed on. ph 13:55 Police notified at 13:56 [place] police notified of possible dangerous animal roaming dm5 the area. 13:56 Velvet Dc, RN is Primary Nurse. aj1 14:10 Patient has correct armband on for positive identification. Bed in low position. Call aj1 light in reach. Side rails up X 1. 14:10 No provider procedures requiring assistance completed. aj1 14:13 X-ray completed. Portable x-ray completed in exam room. Patient tolerated procedure jb2 well. 14:14 XRAY Hand RIGHT 3 View In Process Unspecified. EDMS 15:11 Kavon Chery MD is Referral Physician. rn 15:44 Patient did not have IV access during this emergency room visit. 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 Exp: aj1 12/15/2019. Lot #: [id number]. } Route: IM; Site: left deltoid; 14:50 Follow up: Response: No adverse reaction aj1 14:30 Drug: Lidocaine (1 %) 1 vials {Note: Administered by Dr. Ibrahim.} Volume: 20 ml; Route: aj1 Infiltration; 14:50 Follow up: Response: No adverse reaction aj1 Outcome: 15:12 Discharge ordered by MD. rn 15:44 Discharged to home ambulatory. aj1 15:44 Condition: good 15:44 Discharge instructions given to patient, Instructed on discharge instructions, follow up and referral plans. no drinking with medication, no driving heavy equipment, medication usage, wound care, Demonstrated understanding of instructions, follow-up care, medications, wound care, Prescriptions given X 3. 15:45 Patient left the ED. aj1 Signatures: Dispatcher [employer] EDMS Velvet Dc RN RN aj1 Heather Pruitt, RN RN [email or web address] Rowdy Hayes2 Andrea Ibrahim MD MD rn Hall, Patricia, RN RN ph Billeau, Sheri sb2
--- NOTE | 2017-12-08 15:12 | EDPHYS ---
Physician Documentation [facility] Name: Vidal Sexton Age: 22 yrs Sex: Male : 1995 Arrival Date: 12/08/2017 Time: 13:33 Bed 20 Private MD: ED Physician Andrea Ibrahim HPI: 12/08 13:54 This 22 yrs old Male presents to ER via Ambulatory with complaints of Dog Bite.rn 13:54 The patient was bitten on the right hand, by a dog, in an unprovoked manner, outdoors. rn Animal information: Patient/Caregiver unable to provide information related to the animal. Severity of symptoms: At their worst the symptoms were moderate, in the emergency department the symptoms are unchanged. The patient has not experienced similar symptoms in the past. 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 Historical: - Allergies: 13:45 No Known Allergies; ph - Home Meds: 13:45 None [Active]; ph - PMHx: 13:45 None; ph - PSHx: 13:45 None; ph - Immunization history:: Adult Immunizations not up to date. - Social history:: Smoking status: Patient uses tobacco products, smokes one-half pack cigarettes per day. - Ebola Screening: : No symptoms or risks identified at this time. - Family history:: not pertinent. - Hospitalizations: : No recent hospitalization is reported. ROS: 13:54 Constitutional: Negative for fever, chills, and weight loss, Neck: Negative for injury, rn pain, and swelling, Cardiovascular: Negative for chest pain, palpitations, and edema, Respiratory: Negative for shortness of breath, cough, wheezing, and pleuritic chest pain, Abdomen/GI: Negative for abdominal pain, nausea, vomiting, diarrhea, and constipation, Back: Negative for injury and pain, MS/Extremity: + right hand dog bite Skin: + puncture and lacerations to right hand Neuro: Negative for headache, weakness, numbness, tingling, and seizure. Exam: 13:54 Constitutional: This is a well developed, well nourished patient who is awake, alert, rn and in no acute distress. MS/ Extremity: Pulses equal, no cyanosis. Neurovascular intact. Full, normal range of motion. + right hand with lacerations one on thenar eminence approx 4cm, irregular, and another at base of right thumb/dorsum approx 3cm, 2 subcentimeter puncture wounds to dorsum of right hand, + dry blood but no active bleeding noted. Able to make fist without deformity. Vital Signs: 13:43 BP 161 / 71; Pulse 101; Resp 20; Temp 98.9; Pulse Ox 98% on R/A; Weight 108.86 kg; ph Height 5 ft. 11 in. (180.34 cm); Pain 10/10; 13:43 Body Mass Index 33.47 (108.86 kg, 180.34 cm) ph Laceration: 15:06 Wound Repair of 4cm ( 1.6in ) subcutaneous laceration to palm of right hand. Distal rn neuro/vascular/tendon intact. Anesthesia: Wound infiltrated with 2 mls of 2% lidocaine. Wound prep: Extensive cleansing by nurse, Wound irrigation by nurse, Copious irrigation. Skin closed with 5 4-0 Prolene using interrupted sutures and sterile technique. Dressed with Kerlix. Patient tolerated well. 15:06 Wound Repair of 3cm ( 1.2in ) subcutaneous laceration to center of right hand. Distal rn neuro/vascular/tendon intact. Anesthesia: Wound infiltrated with 2 mls of 2% lidocaine. Wound prep: Extensive cleansing by nurse, Wound irrigation by nurse, Wound explored extensively, Copious irrigation. Skin closed with 3 4-0 Prolene using interrupted sutures and sterile technique. Dressed with Kerlix. Patient tolerated well. 15:06 Wound Repair of 5cm ( 2.0in ) subcutaneous laceration to dorsum of right hand. Distal rn neuro/vascular/tendon intact. Anesthesia: Wound infiltrated with 3 mls of 2% lidocaine. Wound prep: Extensive cleansing by nurse, Wound irrigation by nurse, Wound explored extensively, Copious irrigation. Skin closed with 7 4-0 Prolene using interrupted sutures and sterile technique. Dressed with 4x4's. Patient tolerated well. MDM: 13:44 Patient medically screened. rn 15:06 Differential diagnosis: superficial laceration. Data reviewed: vital signs, nurses rn notes, radiologic studies, plain films, and as a result, I will discharge patient. Counseling: I had a detailed discussion with the patient and/or guardian regarding: the historical points, exam findings, and any diagnostic results supporting the discharge/admit diagnosis, radiology results, the need for outpatient follow up, to return to the emergency department if symptoms worsen or persist or if there are any questions or concerns that arise at home. Special discussion: I discussed with the patient/guardian in detail that at this point there is no indication for admission to the hospital. It is understood, however, that if the symptoms persist or worsen the patient needs to return immediately for re-evaluation. Based on the history and exam findings, there is no indication for further emergent testing or inpatient evaluation. I discussed with the patient/guardian the need to see the hand specialist for further evaluation of the symptoms. 15:06 Response to treatment: the patient's symptoms have markedly improved after treatment. 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 Exp: aj1 12/15/2019. Lot #: [id number]. } Route: IM; Site: left deltoid; 14:50 Follow up: Response: No adverse reaction aj 14:30 Drug: Lidocaine (1 %) 1 vials {Note: Administered by Dr. Ibrahim.} Volume: 20 ml; Route: aj1 Infiltration; 14:50 Follow up: Response: No adverse reaction aj Disposition: 12/08/17 15:12 Discharged to Home. Impression: Bitten by dog, Superficial lacerations of right hand. - Condition is Stable. - Discharge Instructions: Laceration Care, Adult, Animal Bite. - Prescriptions for Augmentin 875- 125 mg Oral Tablet - take 1 tablet by ORAL route every 12 hours for 10 days; 20 tablet. Tylenol- Codeine #3 300-30 mg Oral Tablet - take 1 tablet by ORAL route every 6 hours As needed; 20 tablet. Doxycycline Monohydrate 100 mg Oral Tablet - take 1 tablet by ORAL route every 12 hours for 10 days; 20 tablet. - Medication Reconciliation Form, Thank You Letter, Antibiotic Education, Prescription Opioid Use, Work release form form. - Follow up: Kavon Chery MD; When: 14 days; Reason: Wound Recheck, Recheck today's complaints, Re-evaluation by your physician. - Problem is new. - Symptoms have improved. Signatures: Dispatcher [employer] Velvet Michel RN RN aj1 Andrea Ibrahim MD MD rn Hall, Patricia, RN RN ph Corrections: (The following items were deleted from the chart) 15:45 15:12 12/08/2017 15:12 Discharged to Home. Impression: Bitten by dog; Superficial aj1 lacerations of right hand. Condition is Stable. Forms are Medication Reconciliation Form, Thank You Letter, Antibiotic Education, Prescription Opioid Use. Follow up: Kavon Chery; When: 14 days; Reason: Wound Recheck, Recheck today's complaints, Re-evaluation by your physician. Problem is new. Symptoms have improved. rn
[2017-12-08] MEDS ORDERED: ONDANSETRON 4 MG (ODT) TAB ONE (15:35)
== END 2017-12-08 15:45 | disposition home or self-care (01) ==
LOC: ER 13:32
PROC: 0JQJ0ZZ Repair Right Hand Subcutaneous Tissue and Fascia, Open Approach (ICD-10-PCS; principal; 2017-12-08)
DX: S61.411A Laceration without foreign body of right hand, initial encounter (principal); W54.0XXA Bitten by dog, initial encounter; Y93.89 Activity, other specified; Y92.89 Other specified places as the place of occurrence of the external cause; Z23 Encounter for immunization; F17.210 Nicotine dependence, cigarettes, uncomplicated
CPT/HCPCS: 90714; 96372; 99283

== ENCOUNTER 2017-12-15 21:58 | Emergency (ER) | payer SELFPAY ==
[2017-12-15] MEDS ORDERED: SMZ./TMP. 800/160 MG TABLET ONE (22:37)
--- NOTE | 2017-12-15 22:44 | EDPHYS ---
Physician Documentation [facility] Name: Vidal Sextno Age: 22 yrs Sex: Male : 1995 Arrival Date: 12/15/2017 Time: 21:59 Bed 27 Private MD: ED Physician Cassius Rowe HPI: 12/15 22:25 This 22 yrs old Male presents to ER via Ambulatory with complaints of Hand cp Pain. 22:25 Patient presents to ED for recheck of: laceration, dog bite. cp 22:25 The affected area is on the right hand. Previous treatment: The patient was initially cp treated 7 day(s) ago, the care was rendered at [facility], Treatment type: The patient's original treatment included sutures, Outpatient prescription(s): The patient was given prescription(s) for Doxycycline, Augmentin. Historical: - Allergies: 22:18 No Known Allergies; mg2 - Home Meds: 22:18 None [Active]; mg2 - PMHx: 22:18 None; mg2 - PSHx: 22:18 None; mg2 - Immunization history:: Last tetanus immunization: up to date. - Social history:: Smoking status: Patient uses tobacco products, smokes one-half pack cigarettes per day, Patient uses alcohol, weekly. Patient/guardian denies using street drugs, IV drugs. - Ebola Screening: : No symptoms or risks identified at this time. ROS: 22:30 All other systems are negative. cp Exam: 22:38 Head/Face: Normocephalic, atraumatic. cp 22:38 Constitutional: The patient appears in no acute distress, alert, awake, non-toxic, well developed, well nourished. 22:38 Eyes: Periorbital structures: appear normal, Conjunctiva: normal, Lids and lashes: appear normal, bilaterally. 22:38 ENT: External ear(s): are unremarkable, Nose: is normal, Mouth: is normal, Posterior pharynx: is normal, airway is patent. 22:38 Chest/axilla: Inspection: normal. 22:38 Cardiovascular: Rate: normal. 22:38 Respiratory: the patient does not display signs of respiratory distress, Respirations: normal. 22:38 Skin: Wound recheck: Suture laceration closure: no drainage, no erythema, mild dehiscence, moderate swelling. Vital Signs: 22:19 BP 127 / 56; Pulse 81; Resp 18; Temp 97.5; Pulse Ox 99% on R/A; Weight 108.86 kg; mg2 Height 5 ft. 11 in. (180.34 cm); Pain 9/10; 22:19 Body Mass Index 33.47 (108.86 kg, 180.34 cm) mg2 MDM: 22:12 Patient medically screened. cp 22:30 Differential diagnosis: abscess, infected wound. cp 22:40 Data reviewed: vital signs, nurses notes, old medical records, notes from previous cp visit and as a result, I will discharge patient. 22:42 Counseling: I had a detailed discussion with the patient and/or guardian regarding: the cp historical points, exam findings, and any diagnostic results supporting the discharge/admit diagnosis, the need for outpatient follow up, a hand specialist, to return to the emergency department if symptoms worsen or persist or if there are any questions or concerns that arise at home. 12/15 22:24 Order name: Wound dressing: clean and redress wounds; Complete Time: 22:48 cp Administered Medications: 22:47 Drug: Bactrim (160 mg-800 mg (DS) 1 tablet Route: PO; mg2 22:47 Follow up: Response: No adverse reaction; Medication administered at discharge. mg2 Disposition: 23:15 Chart complete. cp Disposition: 12/15/17 22:43 Discharged to Home. Impression: Encounter for change or removal of nonsurgical wound dressing. - Condition is Stable. - Discharge Instructions: How to Change Your Dressing, Wound Check, Wound Care. - Prescriptions for Bactrim DS 800- 160 mg Oral Tablet - take 1 tablet by ORAL route every 12 hours for 10 days; 20 tablet. Medrol (Jude) 4 mg Oral Tablets, Dose Pack - take 1 tablet by ORAL route as directed - follow package instructions; 1 packet. - Medication Reconciliation Form, Thank You Letter, Antibiotic Education, Prescription Opioid Use, Work release form form. - Follow up: Kavon Chery MD; When: 48 Hours; Reason: Wound Recheck. - Problem is new. - Symptoms are unchanged. Addendum: 12/16/2017 23:19 Co-signature as Attending Physician, Cassius Rowe MD Available for consultation at p s1 all times. . Signatures: Delmar Ahn PA PA cp Cassius Rowe MD MD ps1 Luis Miguel Silveira, RN RN mg2 Corrections: (The following items were deleted from the chart) 12/15 22:47 22:24 Splint - Volar Wrist Splint ordered. cp mg2 23:04 22:43 12/15/2017 22:43 Discharged to Home. Impression: Encounter for change or removal mg2 of nonsurgical wound dressing. Condition is Stable. Forms are Medication Reconciliation Form, Thank You Letter, Antibiotic Education, Prescription Opioid Use. Follow up: Kavon Chery; When: 48 Hours; Reason: Wound Recheck. Problem is new. Symptoms are unchanged. cp
--- NOTE | 2017-12-15 22:44 | ER ---
Nurse's Notes [facility] Name: Vidal Sexton Age: 22 yrs Sex: Male : 1995 Arrival Date: 12/15/2017 Time: 21:59 Bed 27 Private MD: Diagnosis: Encounter for change or removal of nonsurgical wound dressing Presentation: 12/15 22:16 Presenting complaint: Patient states: he has a post-sutured wound/dogbite for a week mg2 now and he worries that it might be infected. Transition of care: patient was not received from another setting of care. Onset of symptoms was November 2017. Risk Assessment: Do you want to hurt yourself or someone else? Patient reports no desire to harm self or others. Initial Sepsis Screen: Does the patient meet any 2 criteria? No. Patient's initial sepsis screen is negative. Does the patient have a suspected source of infection? No. Patient's initial sepsis screen is negative. Care prior to arrival: None. 22:16 Method Of Arrival: Ambulatory mg2 22:16 Acuity: TRISHA 4 mg2 Historical: - Allergies: 22:18 No Known Allergies; mg2 - Home Meds: 22:18 None [Active]; mg2 - PMHx: 22:18 None; mg2 - PSHx: 22:18 None; mg2 - Immunization history:: Last tetanus immunization: up to date. - Social history:: Smoking status: Patient uses tobacco products, smokes one-half pack cigarettes per day, Patient uses alcohol, weekly. Patient/guardian denies using street drugs, IV drugs. - Ebola Screening: : No symptoms or risks identified at this time. Screenin:19 Abuse screen: Denies threats or abuse. Denies injuries from another. Nutritional mg2 screening: No deficits noted. Tuberculosis screening: No symptoms or risk factors identified. Fall Risk None identified. Assessment: 23:02 General: Appears in no apparent distress. comfortable, Behavior is calm, cooperative. mg2 Pain: Complains of pain in right hand. Neuro: Level of Consciousness is awake, alert, obeys commands, Oriented to person, place, time, situation. Cardiovascular: Capillary refill < 3 seconds Patient's skin is warm and dry. Respiratory: Airway is patent Respiratory effort is even, unlabored, Respiratory pattern is regular, symmetrical. GI: No signs and/or symptoms were reported involving the gastrointestinal system. : No signs and/or symptoms were reported regarding the genitourinary system. EENT: No signs and/or symptoms were reported regarding the EENT system. Derm: Skin is intact, Skin is pink, warm \T\ dry. normal, Wound noted right hand. Musculoskeletal: Circulation, motion, and sensation intact. Vital Signs: 22:19 BP 127 / 56; Pulse 81; Resp 18; Temp 97.5; Pulse Ox 99% on R/A; Weight 108.86 kg; mg2 Height 5 ft. 11 in. (180.34 cm); Pain 9/10; 22:19 Body Mass Index 33.47 (108.86 kg, 180.34 cm) mg2 ED Course: 21:59 Patient arrived in ED. ds1 22:10 Delmar Ahn PA is PHCP. cp 22:10 Cassius Rowe MD is Attending Physician. cp 22:16 Luis Miguel Silveira, EDWINA is Primary Nurse. mg2 22:17 Triage completed. mg2 22:19 Arm band placed on. mg2 22:22 No provider procedures requiring assistance completed. Patient did not have IV access mg2 during this emergency room visit. 22:25 Patient has correct armband on for positive identification. Bed in low position. mg2 22:41 Kavon Chery MD is Referral Physician. cp 23:03 Dressings: non-adherent dressing curad. mg2 Administered Medications: 22:47 Drug: Bactrim (160 mg-800 mg (DS) 1 tablet Route: PO; mg2 22:47 Follow up: Response: No adverse reaction; Medication administered at discharge. mg2 Outcome: 22:43 Discharge ordered by . cp 23:04 Patient left the ED. mg2 Signatures: Sandy Lynch ds1 Delmar Ahn PA PA cp Luis Miguel Silveira, RN RN mg2
== END 2017-12-15 23:04 | disposition home or self-care (01) ==
LOC: ER 21:58
DX: Z48.00 Encounter for change or removal of nonsurgical wound dressing (principal); F17.210 Nicotine dependence, cigarettes, uncomplicated
CPT/HCPCS: 99282

== ENCOUNTER 2017-12-27 18:28 | Emergency (ER) | payer SELFPAY ==
--- NOTE | 2017-12-27 21:33 | ER ---
Nurse's Notes [facility] Name: Vidal Sexton Age: 22 yrs Sex: Male : 1995 Arrival Date: 12/27/2017 Time: 18:30 Bed Waiting Private MD: Diagnosis: Presentation: 12/27 18:42 Presenting complaint: Patient states: Patient had sutures put in his hand 3 weeks ago, aj1 patient did not follow up to have sutures removed. Now his hand is swollen and painful. Transition of care: patient was not received from another setting of care. Onset of symptoms was December 27, 2017. Risk Assessment: Do you want to hurt yourself or someone else? Patient reports no desire to harm self or others. Initial Sepsis Screen: Does the patient meet any 2 criteria? HR > 90 bpm. No. Patient's initial sepsis screen is negative. Does the patient have a suspected source of infection? Yes: Skin breakdown/wound. Care prior to arrival: None. 18:42 Method Of Arrival: Ambulatory aj 18:42 Acuity: TRISHA 4 aj1 Triage Assessment: 18:45 General: Appears in no apparent distress. uncomfortable, Behavior is calm, cooperative, aj1 appropriate for age. Pain: Complains of pain in right hand Pain currently is 9 out of 10 on a pain scale. Neuro: Level of Consciousness is awake, alert, obeys commands. Cardiovascular: Patient's skin is warm and dry. Respiratory: Airway is patent Respiratory effort is even, unlabored, Respiratory pattern is regular, symmetrical. Historical: - Allergies: 18:45 No Known Allergies; aj1 - Home Meds: 18:45 None [Active]; aj1 - PMHx: 18:45 None; aj1 - PSHx: 18:45 None; aj1 - Immunization history:: Flu vaccine is up to date. - Social history:: Smoking status: Patient uses tobacco products, 2-3 cigarettes per day. - Ebola Screening: : Patient denies travel to an Ebola-affected area in the 21 days before illness onset. Vital Signs: 18:45 BP 123 / 83; Pulse 102; Resp 16; Temp 97.2(TE); Pulse Ox 97% on R/A; Weight 108.86 kg aj1 (R); Height 5 ft. 11 in. (180.34 cm) (R); Pain 10/10; 18:45 Body Mass Index 33.47 (108.86 kg, 180.34 cm) aj1 ED Course: 18:30 Patient arrived in ED. rg4 18:45 Triage completed. aj1 18:45 Arm band placed on Patient placed in waiting room, Patient notified of wait time. aj1 20:46 Patient's name was called from ER lobby. No response. aj1 21:18 Patient's name was called from ER lobby. No response. aj1 21:32 Patient's name was called from ER lobby. No response. Unable to locate patient. Will aj1 disposition as left without being seen by a provider. Administered Medications: No medications were administered Outcome: 21:32 Eloped from waiting room. aj1 21:32 Patient left the ED. aj1 Signatures: Velvet Dc, RN RN [email or web address] Sybil Cole rg4
== END 2017-12-27 21:32 | disposition left against medical advice (07) ==
LOC: ER 18:28
DX: Z53.21 Procedure and treatment not carried out due to patient leaving prior to being seen by health care provider (principal)
CPT/HCPCS: 99281

== ENCOUNTER 2019-05-29 11:00 | Emergency (ER) | payer SELFPAY ==
--- NOTE | 2019-05-29 12:39 | RAD REPORT ---
EXAM DESCRIPTION: US - Scrotum Testicles - 05/29/2019 12:25 pm CLINICAL HISTORY: PAIN COMPARISON: No comparisons FINDINGS: Testicular tissue is homogeneous. No intratesticular mass lesions are present. Doppler allen luation shows a normal, symmetric intratesticular blood flow pattern. No scrotal wall thickening or e kay. No enlargement or hyperemia of the epididymal tissues. A small 3-4 mm left epididymal cyst is s een as an incidental finding. No varicocele, hydrocele or other extratesticular significant finding. IMPRESSION: Scrotal ultrasound study, as detailed above, shows no significant or suspicious finding.
--- NOTE | 2019-05-29 14:50 | EDPHYS ---
Physician Documentation [facility] Name: Vidal Sexton Age: 23 yrs Sex: Male : 1995 Arrival Date: 05/29/2019 Time: 11:04 Bed 26 Private MD: Kevin Rivero T ED Physician Jahaira Mims HPI: 05/28 14:46 This 23 yrs old Male presents to ER via Ambulatory with complaints of ma2 Testicular Problem. 14:46 This 23 yrs old Male presents to ER via Ambulatory with complaints of ma2 Testicular Problem. 14:46 The patient presents with scrotal pain, of the right side. Onset: The symptoms/episode ma2 began/occurred gradually, 1 day(s) ago. Associated signs and symptoms: Pertinent negatives: constipation, dysuria, hematuria, nausea. Associated signs and symptoms: Pertinent negatives:. Severity of symptoms: At their worst the symptoms were mild, in the emergency department the symptoms are unchanged. Severity of symptoms: At their worst the symptoms were in the emergency department the symptoms are unchanged, have resolved, and did so just prior to arrival. The patient has not experienced similar symptoms in the past. Historical: - Allergies: 11:26 No Known Allergies; ca1 - Home Meds: : Adderall XR Oral [Active]; ca1 - PMHx: : ADD/ADHD; ca1 - PSHx: 11:26 None; ca1 - Immunization history:: Adult Immunizations up to date, Flu vaccine is not up to date. - Social history:: Smoking status: Reported history of juuling and/or vaping. Patient/guardian denies using alcohol, street drugs, The patient lives with family. - Family history:: not pertinent. ROS: 14:46 Constitutional: Negative for fever, chills, and weight loss. ma2 14:46 All other systems are negative. Exam: 14:46 Constitutional: This is a well developed, well nourished patient who is awake, alert, ma2 and in no acute distress. Chest/axilla: Normal chest wall appearance and motion. Nontender with no deformity. No lesions are appreciated. Cardiovascular: Regular rate and rhythm with a normal S1 and S2. No gallops, murmurs, or rubs. Normal PMI, no JVD. No pulse deficits. Respiratory: Lungs have equal breath sounds bilaterally, clear to auscultation and percussion. No rales, rhonchi or wheezes noted. No increased work of breathing, no retractions or nasal flaring. Abdomen/GI: Soft, non-tender, with normal bowel sounds. No distension or tympany. No guarding or rebound. No evidence of tenderness throughout. Male : Normal genitalia with no discharge or lesions. Skin: Warm, dry with normal turgor. Normal color with no rashes, no lesions, and no evidence of cellulitis. MS/ Extremity: Pulses equal, no cyanosis. Neurovascular intact. Full, normal range of motion. Neuro: Awake and alert, GCS 15, oriented to person, place, time, and situation. Cranial nerves II-XII grossly intact. Motor strength 5/5 in all extremities. Sensory grossly intact. Cerebellar exam normal. Normal gait. Vital Signs: 11:21 BP 140 / 96; Pulse 106; Resp 18 S; Temp 98.2(O); Pulse Ox 100% on R/A; Weight 108.86 kg ca1 (R); Height 5 ft. 10 in. (177.80 cm) (R); Pain 5/10; 13:41 BP 138 / 101; Pulse 96; Resp 18; Pulse Ox 100% on R/A; vc 11:21 Body Mass Index 34.44 (108.86 kg, 177.80 cm) ca1 MDM: 12:03 Patient medically screened. ma2 14:46 Differential diagnosis: urinary retention, prostatitis, urethritis. Data reviewed: [facility] vital signs, nurses notes. Counseling: I had a detailed discussion with the patient and/or guardian regarding: the historical points, exam findings, and any diagnostic results supporting the discharge/admit diagnosis, the presence of at least one elevated blood pressure reading (>120/80) during this emergency department visit, the need for outpatient follow up. Response to treatment: the patient's symptoms have resolved after treatment. 14:59 ED course: educational/development assistant aware checked . ma2 05/28 13:34 Order name: Urine Dipstick--Ancillary (enter results) bd 05/28 11:34 Order name: US Scrotum Testicles snw 05/28 12:35 Order name: Urine Dipstick-Ancillary (obtain specimen); Complete Time: 13:31 ma2 03/03 13:06 Order name: US; Complete Time: 13:21 EDMS Administered Medications: No medications were administered Disposition: 05/29/19 14:49 Discharged to Home. Impression: Pelvic and perineal pain. - Condition is Stable. - Discharge Instructions: Testicular Self-Exam. - Prescriptions for Tylenol- Codeine #3 300-30 mg Oral Tablet - take 2 tablet by ORAL route every 6 hours As needed; 30 tablet. - Medication Reconciliation Form, Thank You Letter, Antibiotic Education, Prescription Opioid Use form. - Follow up: Private Physician; When: Tomorrow; Reason: Continuance of care. Signatures: Dispatcher [employer] EDMS Jahaira Mims MD MD ma2 Fadumo Morales RN RN ca1 Amira Henry RN RN vc Corrections: (The following items were deleted from the chart) 15:01 14:49 05/29/2019 14:49 Discharged to Home. Impression: Pelvic and perineal pain. vc Condition is Stable. Forms are Medication Reconciliation Form, Thank You Letter, Antibiotic Education, Prescription Opioid Use. Follow up: Private Physician; When: Tomorrow; Reason: Continuance of care. maAshu
--- NOTE | 2019-05-29 14:50 | ER ---
Nurse's Notes [facility] Name: Vidal Sexton Age: 23 yrs Sex: Male : 1995 Arrival Date: 05/29/2019 Time: 11:04 Bed 26 Private MD: Kevin Rivero T Diagnosis: Pelvic and perineal pain Presentation: 05/28 11:21 Chief complaint: Patient states: L testicular pain since last night. Denies swelling ca1 and history of hernia. Reports L lower abdominal discomfort. Denies urinary symptoms. Coronavirus screen: The patient has NOT traveled to [place] in the past 14 days. The patient has NOT had contact with known and/or suspected case of Coronavirus. Ebola Screen: Patient negative for fever greater than or equal to 101.5 degrees Fahrenheit, and additional compatible Ebola Virus Disease symptoms Patient denies exposure to infectious person. Patient denies travel to an Ebola-affected area in the 21 days before illness onset. No symptoms or risks identified at this time. Initial Sepsis Screen: Does the patient meet any 2 criteria? No. Patient's initial sepsis screen is negative. Does the patient have a suspected source of infection? No. Patient's initial sepsis screen is negative. Risk Assessment: Do you want to hurt yourself or someone else? Patient reports no desire to harm self or others. Onset of symptoms was May 29, 2019. 11:21 Method Of Arrival: Ambulatory ca1 11:21 Acuity: TRISHA 3 ca1 Historical: - Allergies: 11:26 No Known Allergies; ca1 - Home Meds: 11:26 Adderall XR Oral [Active]; ca1 - PMHx: 11:26 ADD/ADHD; ca1 - PSHx: 11:26 None; ca1 - Immunization history:: Adult Immunizations up to date, Flu vaccine is not up to date. - Social history:: Smoking status: Reported history of juuling and/or vaping. Patient/guardian denies using alcohol, street drugs, The patient lives with family. - Family history:: not pertinent. Screenin:52 Abuse screen: Denies threats or abuse. Nutritional screening: No deficits noted. vc Tuberculosis screening: No symptoms or risk factors identified. Fall Risk None identified. Assessment: 12:50 General: Appears in no apparent distress. uncomfortable, Behavior is calm, cooperative, vc appropriate for age. Pain: Complains of pain in testicular, lower abdomen. Neuro: Level of Consciousness is awake, alert, obeys commands, Oriented to person, place, time, situation, Appropriate for age. Cardiovascular: Patient's skin is warm and dry. Respiratory: Airway is patent Respiratory effort is even, unlabored, Respiratory pattern is regular, symmetrical. GI: No signs and/or symptoms were reported involving the gastrointestinal system. : Denies burning with urination, pain with urination. EENT: No deficits noted. Derm: Skin temperature is warm. Musculoskeletal: Circulation, motion, and sensation intact. Range of motion: intact in all extremities. 13:40 Reassessment: Patient and/or family updated on plan of care and expected duration. Pain vc level reassessed. Patient is alert, oriented x 3, equal unlabored respirations, skin warm/dry/pink. Patient up walking around the room. Patient states feeling better. 14:34 Reassessment: Patient and/or family updated on plan of care and expected duration. Pain vc level reassessed. Patient is alert, oriented x 3, equal unlabored respirations, skin warm/dry/pink. Patient states feeling better. Vital Signs: 11:21 BP 140 / 96; Pulse 106; Resp 18 S; Temp 98.2(O); Pulse Ox 100% on R/A; Weight 108.86 kg ca1 (R); Height 5 ft. 10 in. (177.80 cm) (R); Pain 5/10; 13:41 BP 138 / 101; Pulse 96; Resp 18; Pulse Ox 100% on R/A; vc 11:21 Body Mass Index 34.44 (108.86 kg, 177.80 cm) ca1 ED Course: 11:04 Patient arrived in ED. ag5 11:04 Kevin Rivero MD is Private Physician. ag5 11:25 Triage completed. ca1 11:26 Arm band placed on right wrist. ca1 12:03 Jahaira Mims MD is Attending Physician. ma2 12:50 Amira Henry RN is Primary Nurse. vc 12:52 Patient has correct armband on for positive identification. Placed in gown. Bed in low vc position. Call light in reach. Pulse ox on. NIBP on. 13:31 Urine collected: clean catch specimen, cloudy, Amount Voided: 60mL. ca1 14:25 Awaiting radiology results. vc 14:31 US Scrotum Testicles Sent. vc 14:35 Awaiting: ultrasound resultus. vc Administered Medications: No medications were administered Outcome: 14:49 Discharge ordered by . cesar 15:01 Patient left the ED. vc Signatures: Jahaira Mims MD MD ma2 Fadumo Morales RN RN ca1 Norris Prado ag5 Amira Henry RN RN vc Corrections: (The following items were deleted from the chart) 11:26 11:21 Acuity: TRISHA 4 ca1 ca1
[2019-05-29 15:30] VITALS: BP 138/101; O2SAT 100
[2019-05-29 15:32] VITALS: TEMP 98.2
[2019-05-29 17:43] LABS: Urine Blood NEGATIVE (NEG); Urine Glucose NEGATIVE (NEG); Urine Protein 1+ (NEG); Urine Specific Gravity 1.025 (1.005-1.030)
== END 2019-05-29 15:01 | disposition home or self-care (01) ==
LOC: ER 11:00
DX: R10.2 Pelvic and perineal pain (principal); F17.290 Nicotine dependence, other tobacco product, uncomplicated; F90.9 Attention-deficit hyperactivity disorder, unspecified type
CPT/HCPCS: 76870; 81003; 99283

== ENCOUNTER 2020-01-01 18:22 | Emergency (ER) | payer SELFPAY ==
--- NOTE | 2020-01-01 18:50 | ER ---
Nurse's Notes [facility] Name: Vidal Sexton Age: 24 yrs Sex: Male : 1995 Arrival Date: 01/01/2020 Time: 18:26 Bed Waiting [facility] MD: Diagnosis: ED Course: 12/31 18:26 Patient arrived in ED. bp1 Administered Medications: No medications were administered Outcome: 18:49 Patient left the ED. ll1 Signatures: Charito Tran RN RN ll1 Mallory Cummings bp1
== END 2020-01-01 18:49 | disposition left against medical advice (07) ==
LOC: ER 18:22
DX: Z02.9 Encounter for administrative examinations, unspecified (principal)

== ENCOUNTER 2020-10-17 20:06 | Emergency (ER) | payer SELFPAY | END 2020-10-17 21:40 | disposition left against medical advice (07) | LOC: ER 20:06 | DX: Z02.9 Encounter for administrative examinations, unspecified (principal) ==